=== PATIENT | male | born 1970 | race Caucasian/White ===

== ENCOUNTER 2022-02-03 22:45 | Inpatient (IN) | payer OTHER ==
[~2022-02-03] VITALS: Ht 165.1 cm; Wt 101.0 kg
[2022-02-03 23:20] LABS: BASO # 0.1 x10^3/uL (0.0-0.2); BASO % 1 % (0-3); EOS % 0 % (0-3); HEMATOCRIT 47.9 % (39.0-53.0); HEMOGLOBIN 16.8 g/dL (13.0-17.5); LYMPH # 0.5 x10^3/uL (1.0-4.8); LYMPH % 6 % (24-48); MEAN CORPUSCULAR HEMOGLOBIN 31 pg (25-35); MEAN CORPUSCULAR HGB CONC 35 g/dL (31-37); MEAN CORPUSCULAR VOLUME 88 fL (79-100); MONO # 0.2 x10^3/uL (0.0-1.1); MONO % 2 % (0-9); NEUT # 7.4 x10^3/uL (1.8-7.7); NEUT % 91 % (31-73); PLATELET COUNT 141 x10^3/uL (140-400); RED BLOOD COUNT 5.43 x10^6/uL (4.30-5.70); RED CELL DISTRIBUTION WIDTH 12.8 % (11.5-14.5); WHITE BLOOD COUNT 8.1 x10^3/uL (4.0-11.0)
[2022-02-03] MEDS ORDERED: IV NORMAL SALINE 1000ML BAG 1,000 ML IV ONE (23:30)
[2022-02-03] MEDS ORDERED: ONDANSETRON PF 4 MG/2 ML VIAL. IVP ONE (23:30)
[2022-02-03] MEDS ORDERED: ACETAMINOPHEN 500 MG TABLET PO ONE (23:30)
[2022-02-03] MEDS ORDERED: MORPHINE SULFATE 4 MG/ML INJ. IVP ONE (23:30)
[2022-02-03 23:33] LABS: CREATININE 1.3 mg/dL (0.7-1.3); GFR 58.2; POTASSIUM 3.6 mmol/L (3.5-5.1)
[2022-02-03 23:39] LABS: ALBUMIN 3.9 g/dL (3.4-5.0); ALBUMIN/GLOBULIN RATIO 1.1 (1.0-1.7); TOTAL BILIRUBIN 1.8 mg/dL (0.2-1.0); TOTAL PROTEIN 7.3 g/dL (6.4-8.2)
--- NOTE | 2022-02-03 23:44 | RAD ---
PQRS Compliance Statement: One or more of the following individualized dose reduction techniques were utilized for this examinat ion: 1. Automated exposure control 2. Adjustment of the mA and/or kV according to patient size 3. Use of iterative reconstruction technique CT abdomen/pelvis without contrast 02/03/2022 11:14 PM INDICATION: Right lower quadrant pain, fever COMPARISON: None available TECHNIQUE: Multiple axial CT images of the abdomen and pelvis were obtained without intravenous contr ast. Coronal and sagittal reformats are provided. FINDINGS: Mediastinal and right hilar calcified lymph nodes suggest sequela prior granulomatous exposure. Three -vessel coronary artery vascular calcifications are present. Lung bases are clear. Heart size within normal limits. Evaluation of the solid abdominal viscera is limited by lack of intravenous contrast. Calcifications within the spleen suggest sequela prior granulomatous exposure. Liver, adrenal glands, pancreas and gallbladder are normal in appearance. The abdominal aorta is normal in course and caliber. There are no pathologically enlarged lymph nodes in the abdomen and pelvis. There is no abdominal free fluid. There is no free intraperitoneal air. The kidneys are relatively symmetric in appearance. There is no suspicious renal mass within the limi tations of a noncontrast examination. There is no hydronephrosis. There are no calculi within the kid neys, ureters or urinary bladder. Small and large bowel are normal in caliber. There is no evidence for bowel obstruction. There are no pericolonic inflammatory changes. Dilated appendix measuring up to 1.4 cm. There is an 8 mm appendic olith at the base of the appendix. Mild reactive inflammatory changes of the base of the cecum with m oderate to advanced periappendiceal inflammatory changes. No abscess or perforation identified. Urinary bladder is within normal limits given degree of distention. Prostate and seminal vesicles are normal in appearance. No suspicious osseous abnormality is identified. Bilateral L5 pars defects favian ntified. Grade 1 anterolisthesis of L5 on S1. Grade 1 retrolisthesis of L4 on L5. IMPRESSION: Findings are compatible with acute appendicitis with an 8 mm appendicolith at the base of the appendi x. No associated abscess or perforation. FOR INTERNAL CODING PURPOSES Critical result: Findings discussed with NAJMA CARRASQUILLO APRN at 02/03/2022 11:42 PM. RESULT CODE: (C) Electronically signed by: Ofelia Cadet MD (02/03/2022 11:42 PM) [facility]
[2022-02-04] MEDS ORDERED: PIPERACILLIN/TAZOBACTAM 3.375 GM in IV NORMAL SALINE 50ML 50 ML IV ONE (00:30)
--- NOTE | 2022-02-04 00:37 | PHYS DOC ---
Past Medical History Past Surgical History: Other Additional Past Surgical Histo: HERNIA Smoking Status: Current Every Day Smoker Alcohol Use: Occasionally General Adult EDM: Chief Complaint: NAUSEA/VOMITING/DIARRHEA HPI: HPI: Patient is a 52 year old male with a history of hypertension, high cholesterol, presenting to the ED today complaining of 8 out of 10 right lower quadrant with nausea and vomiting, symptoms began this afternoon. Patient describes the pain as sharp and constant. Denies anything relieving the pain but states pushing on his right lower quadrant hurts. Review of Systems: Review of Systems: Constitutional: Denies fever or chills. [] Eyes: Denies change in visual acuity. [] HENT: Denies nasal congestion or sore throat. [] Respiratory: Denies cough or shortness of breath. [] Cardiovascular: Denies chest pain or edema. [] GI: Reports right lower quadrant abdominal pain with nausea and vomiting. Denies bloody stools or diarrhea. [] : Denies dysuria. [] Musculoskeletal: Denies back pain or joint pain. [] Integument: Denies rash. [] Neurologic: Denies headache, focal weakness or sensory changes. [] Psychiatric: Denies depression or anxiety. [] Heart Score: C/O Chest Pain: N/A Risk Factors: Risk Factors: DM, Current or recent (<one month) smoker, HTN, HLP, family history of CAD, obesity. Risk Scores: Score 0 - 3: 2.5% MACE over next 6 weeks - Discharge Home Score 4 - 6: 20.3% MACE over next 6 weeks - Admit for Clinical Observation Score 7 - 10: 72.7% MACE over next 6 weeks - Early Invasive Strategies Current Medications: Current Medications Medications (Trade) Dose Ordered Sig/[facility] Start Time Stop Time Status Last Admin Dose Admin Acetaminophen (Tylenol) 1,000 mg 1X ONCE 02/03/22 23:30 02/03/22 23:31 DC 02/03/22 23:31 1,000 MG Metronidazole 100 ml @ 100 mls/hr 1X ONCE 02/04/22 00:30 02/04/22 01:29 02/04/22 00:02 100 MLS/HR Morphine Sulfate (Morphine Sulfate) 4 mg 1X ONCE 02/03/22 23:30 02/03/22 23:31 DC 02/03/22 23:31 4 MG Ondansetron HCl (Zofran) 4 mg 1X ONCE 02/03/22 23:30 02/03/22 23:31 DC 02/03/22 23:31 4 MG Piperacillin Sod/ Tazobactam Sod 3.375 gm/Sodium Chloride 50 ml @ 100 mls/hr 1X ONCE 02/04/22 00:30 02/04/22 00:59 02/04/22 00:02 100 MLS/HR Sodium Chloride 1,000 ml @ 1,000 mls/hr 1X ONCE 02/03/22 23:30 02/04/22 00:29 DC 02/03/22 23:31 1,000 MLS/HR Allergies: Allergies: Allergies Coded Allergies Type Severity Reaction Last Updated Verified No Known Drug Allergies 02/03/22 No Physical Exam: PE: Constitutional: Well developed, well nourished, no acute distress, non-toxic appearance. [] HENT: Normocephalic, atraumatic, bilateral external ears normal, oropharynx moist, no oral exudates, nose normal. [] Eyes: PERRLA, EOMI, conjunctiva normal, no discharge. [] Neck: Normal range of motion, no tenderness, supple, no stridor. [] Cardiovascular:Heart rate regular rhythm, no murmur [] Lungs & Thorax: Bilateral breath sounds clear to auscultation [] Abdomen: Bowel sounds normal, soft, patient is guarding the right lower quadrant, moderate tenderness on palpation of the right lower quadrant, positive psoas sign no masses, no pulsatile masses. [] Skin: Warm, dry, no erythema, no rash. [] Back: No tenderness, no CVA tenderness. [] Extremities: No tenderness, no cyanosis, no clubbing, ROM intact, no edema. [] Neurologic: Alert and oriented X 3, normal motor function, normal sensory function, no focal deficits noted. [] Psychologic: Affect normal, judgement normal, mood normal. [] Current Patient Data: Labs: Laboratory Tests Test 02/03/22 23:10 White Blood Count 8.1 x10^3/uL (4.0-11.0) Red Blood Count 5.43 x10^6/uL (4.30-5.70) Hemoglobin 16.8 g/dL (13.0-17.5) Hematocrit 47.9 % (39.0-53.0) Mean Corpuscular Volume 88 fL (79-100) Mean Corpuscular Hemoglobin 31 pg (25-35) Mean Corpuscular Hemoglobin Concent 35 g/dL (31-37) Red Cell Distribution Width 12.8 % (11.5-14.5) Platelet Count 141 x10^3/uL (140-400) Neutrophils (%) (Auto) 91 % (31-73) H Lymphocytes (%) (Auto) 6 % (24-48) L Monocytes (%) (Auto) 2 % (0-9) Eosinophils (%) (Auto) 0 % (0-3) Basophils (%) (Auto) 1 % (0-3) Neutrophils # (Auto) 7.4 x10^3/uL (1.8-7.7) Lymphocytes # (Auto) 0.5 x10^3/uL (1.0-4.8) L Monocytes # (Auto) 0.2 x10^3/uL (0.0-1.1) Eosinophils # (Auto) 0.0 x10^3/uL (0.0-0.7) Basophils # (Auto) 0.1 x10^3/uL (0.0-0.2) Sodium Level 137 mmol/L (136-145) Potassium Level 3.6 mmol/L (3.5-5.1) Chloride Level 100 mmol/L (98-107) Carbon Dioxide Level 26 mmol/L (21-32) Anion Gap 11 (6-14) Blood Urea Nitrogen 8 mg/dL (8-26) Creatinine 1.3 mg/dL (0.7-1.3) Estimated GFR (Cockcroft-Gault) 58.2 BUN/Creatinine Ratio 6 (6-20) Glucose Level 130 mg/dL (70-99) H Calcium Level 9.0 mg/dL (8.5-10.1) Total Bilirubin 1.8 mg/dL (0.2-1.0) H Aspartate Amino Transferase (AST) 17 U/L (15-37) Alanine Aminotransferase (ALT) 26 U/L (16-63) Alkaline Phosphatase 82 U/L (46-116) Total Protein 7.3 g/dL (6.4-8.2) Albumin 3.9 g/dL (3.4-5.0) Albumin/Globulin Ratio 1.1 (1.0-1.7) Lipase 91 U/L (73-393) Laboratory Tests 02/03/22 23:10 Laboratory Tests 02/03/22 23:10 Vital Signs: Vital Signs Date Time Temp Pulse Resp B/P (MAP) Pulse Ox O2 Delivery O2 Flow Rate FiO2 02/03/22 23:31 Room Air 02/03/22 22:45 102.9 103 18 164/91 (115) 93 102.9 EKG: EKG: [] Radiology/Procedures: Radiology/Procedures: []PROCEDURE: CT ABDOMEN PELVIS WO CONTRAST PQRS Compliance Statement: One or more of the following individualized dose reduction techniques were utilized for this examination: 1. Automated exposure control 2. Adjustment of the mA and/or kV according to patient size 3. Use of iterative reconstruction technique CT abdomen/pelvis without contrast 02/03/2022 11:14 PM INDICATION: Right lower quadrant pain, fever COMPARISON: None available TECHNIQUE: Multiple axial CT images of the abdomen and pelvis were obtained without intravenous contrast. Coronal and sagittal reformats are provided. FINDINGS: Mediastinal and right hilar calcified lymph nodes suggest sequela prior granulomatous exposure. Three-vessel coronary artery vascular calcifications are present. Lung bases are clear. Heart size within normal limits. Evaluation of the solid abdominal viscera is limited by lack of intravenous contrast. C alcifications within the spleen suggest sequela prior granulomatous exposure. Liver, adrenal glands, pancreas and gallbladder are normal in appearance. The abdominal aorta is normal in course and caliber. There are no pathologically enlarged lymph nodes in the abdomen and pelvis. There is no abdominal free fluid. There is no free intraperitoneal air. The kidneys are relatively symmetric in appearance. There is no suspicious renal mass within the limitations of a noncontrast examination. There is no hydronephrosis. There are no calculi within the kidneys, ureters or urinary bladder. Small and large bowel are normal in caliber. There is no evidence for bowel obstruction. There are no pericolonic inflammatory changes. Dilated appendix measuring up to 1.4 cm. There is an 8 mm appendicolith at the base of the appendix. Mild reactive inflammatory changes of the base of the cecum with moderate to advanced periappendiceal inflammatory changes. No abscess or perforation identified. Urinary bladder is within normal limits given degree of distention. Prostate and seminal vesicles are normal in appearance. No suspicious osseous abnormality is identified. Bilateral L5 pars defects identified. Grade 1 anterolisthesis of L5 on S1. Grade 1 retrolisthesis of L4 on L5. IMPRESSION: Findings are compatible with acute appendicitis with an 8 mm appendicolith at the base of the appendix. No associated abscess or perforation. FOR INTERNAL CODING PURPOSES Critical result: Findings discussed with NAJMA CARRASQUILLO APRN at 02/03/2022 11:42 PM. RESULT CODE: (C) Electronically signed by: Rashawn Tejeda MD (02/03/2022 11:42 PM) [facility] DICTATED and SIGNED BY: RASHAWN TEJEDA MD DATE: 02/03/224 Course & Med Decision Making: Course & Med Decision Making Pertinent Labs and Imaging studies reviewed. (See chart for details) This a 52-year-old male patient presenting to the ED today complaining of right lower quadrant abdominal pain with nausea vomiting that began today. Vitals on arrival to the ED temperature 102.9, heart rate 103, respiration 18, blood pressure 164/91, O2 sats 93% on room air. CBC CMP with no acute findings. CT of the abdomen and pelvis is noted for acute appendicitis with an 8 mm appendicolith at the base of the appendix. No associated abscess or perforation. Spoke with Dr. Girard general surgery Admitted under Dr. Keo Maya Disclaimer: Francesco Disclaimer: This electronic medical record was generated, in whole or in part, using a voice recognition dictation system. Departure Departure Impression: Primary Impression: Acute appendicitis Qualified Codes: K35.80 - Unspecified acute appendicitis Additional Impression: Fever Qualified Codes: R50.9 - Fever, unspecified Disposition: ADMITTED INPATIENT Condition: STABLE PILYRAFINAJMA Tenorio APRN February 04, 2022 00:37
[2022-02-04] MEDS ORDERED: ONDANSETRON PF 4 MG/2 ML VIAL. IVP PRN (00:45)
[2022-02-04] MEDS ORDERED: IV NORMAL SALINE 1000ML BAG 1,000 ML IV ONE (01:00)
[2022-02-04 01:28] VITALS: BP 114/65
[2022-02-04] MEDS: MORPHINE SULFATE 4 MG/ML INJ. IVP PRN ×3 (02:54→10:15)
--- NOTE | 2022-02-04 05:38 | NUR ---
Patient is unsure of medications. States he believes his blood pressure medication starts with an "L" and is 40mg and his cholesterol medication starts with an "a" and is 10mg. RN asked patient if he had anyone at home who could check bottles to verify or if he had the [employer] milvia to verify since he uses [facility] but patient stated he didn't. RN informed patient that he should call pharmacy or his doctor in the AM when they open to verify correct medication name and dose before we enter into the computer.
[2022-02-04] MEDS ORDERED: fentaNYL PF VIAL 100 MCG/2 ML VIAL IVP PRN (06:30)
[2022-02-04] MEDS ORDERED: PROCHLORPERAZINE 10 MG/2 ML VIAL. IVP PRN (06:30)
[2022-02-04] MEDS ORDERED: MORPHINE SULFATE 2 MG/ML INJ. IVP PRN (06:30)
[2022-02-04] MEDS ORDERED: HYDROmorphone 2 MG/ML INJ. IVP PRN (06:30)
[2022-02-04 07:00] VITALS: BP 147/90
[2022-02-04] MEDS ORDERED: IV RINGERS,LACTATED 1000ML 1,000 ML IV SCH (07:00)
--- NOTE | 2022-02-04 08:21 | PDOC2 ---
CONSULT Date of Consult Date of Consult DATE: 02/04/22 TIME: 08:17 Reason for Consult Reason for Consult: acute appendicitis Referring Physician Referring Physician: ER Identification/Chief Complaint Chief Complaint abdominal pain Source Source: Chart review, Patient History of Present Illness Reason for Visit: RLQ pain with associated nausea and vomiting that started Tues evening. Reports at first thought food poisoning. Pain is aggravated with movement. No constipation or diarrhea. Past Medical History Cardiovascular: HTN, Hyperlipidemia Past Surgical History Past Surgical History: Hernia Repair Family History Family History: Other (noncontributory to current illness ) Social History <1 pack per day ALCOHOL: occassional Drugs: None Lives: Alone Current Problem List Problem List Problems Medical Problems: (1) Acute appendicitis Status: Acute (2) Fever Status: Acute Current Medications Current Medications Current Medications Sodium Chloride 1,000 ml @ 1,000 mls/hr 1X ONCE IV Last administered on 02/03/22at 23:31; Start 02/03/22 at 23:30; Stop 02/04/22 at 00:29; Status DC Ondansetron HCl (Zofran) 4 mg 1X ONCE IVP Last administered on 02/03/22at 23:31; Start 02/03/22 at 23:30; Stop 02/03/22 at 23:31; Status DC Morphine Sulfate (Morphine Sulfate) 4 mg 1X ONCE IVP Last administered on 02/03at 23:31; Start 02/03/22 at 23:30; Stop 02/03/22 at 23:31; Status DC Acetaminophen (Tylenol) 1,000 mg 1X ONCE PO Last administered on 02/03/22at 23:31; Start 02/03/22 at 23:30; Stop 02/03/22 at 23:31; Status DC Piperacillin Sod/ Tazobactam Sod 3.375 gm/Sodium Chloride 50 ml @ 100 mls/hr 1X ONCE IV Last administered on 02/04/22at 00:02; Start 02/04/22 at 00:30; Stop 02/04/22 at 00:59; Status DC Metronidazole 100 ml @ 100 mls/hr 1X ONCE IV Last administered on 02/04/22at 00:02; Start 02/04/22 at 00:30; Stop 02/04/22 at 01:29; Status DC Ondansetron HCl (Zofran) 4 mg PRN Q8HRS PRN IVP NAUSEA/VOMITING 1ST CHOICE; Start 02/04/22 at 00:45; Stop 02/05/22 at 00:44 Morphine Sulfate (Morphine Sulfate) 4 mg PRN Q2HR PRN IVP SEVERE PAIN 7-10 Last administered on 02/04/22at 07:22; Start 02/04/22 at 00:45; Stop 02/05/22 at 00:44 Sodium Chloride 1,000 ml @ 100 mls/hr 1X ONCE IV Last administered on 02/04/22at 01:00; Start 02/04/22 at 01:00; Stop 02/04/22 at 10:59 Fentanyl Citrate (Fentanyl 2ml Vial) 25 mcg PRN Q5MIN PRN IVP MILD PAIN 1-3; Start 02/04/22 at 06:30; Stop 02/05/22 at 06:29 Fentanyl Citrate (Fentanyl 2ml Vial) 50 mcg PRN Q5MIN PRN IVP MODERATE PAIN 4- 6; Start 02/04/22 at 06:30; Stop 02/05/22 at 06:29 Morphine Sulfate (Morphine Sulfate) 1 mg PRN Q10MIN PRN IVP SEVERE PAIN 7-10; Start 02/04/22 at 06:30; Stop 02/05/22 at 06:29 Ringer's Solution 1,000 ml @ 30 mls/hr Q24H IV ; Start 02/04/22 at 07:00; Stop 02/04/22 at 18:00 Hydromorphone HCl (Dilaudid) 0.5 mg PRN Q10MIN PRN IVP SEVERE PAIN 7-10, 2nd CHOICE; Start 02/04/22 at 06:30; Stop 02/05/22 at 06:29 Prochlorperazine Edisylate (Compazine) 5 mg PACU PRN PRN IVP NAUSEA, MRX1; Start 02/04/22 at 06:30; Stop 02/05/22 at 06:29 Allergies Allergies: Coded Allergies: No Known Drug Allergies (Unverified , 02/03/22) ROS General: YES: Fatigue; No: Chills PSYCHOLOGICAL ROS: No: Anxiety, Depression Eyes: No Blurry vision, No Double vision HEENT: No: Heacaches, Sore Throat Hematological and Lymphatic: No: Bleeding Problems, Blood Clots Respiratory: No: Cough, Shortness of breath Cardiovascular: No Chest Pain, No Palpitations Gastrointestinal: Yes Other (see hpi) Genitourinary: No Dysuria, No Retention Musculoskeletal: No Joint Pain, No Muscle Pain Neurological: No Impaired Coord/balance, No Numbness/Tingling Skin: No Pruritus, No Rash Physical Exam General: Alert, Oriented X3, Cooperative, No acute distress HEENT: Atraumatic, PERRLA Lungs: Clear to auscultation, Normal air movement Heart: Regular rate, Normal S1, Normal S2 Abdomen: Soft, Other (RLQ TTP, midline scar noted from previous hernia repair ) Extremities: No clubbing, No cyanosis Skin: No rashes, No breakdown Neuro: Normal gait, Normal speech Psych/Mental Status: Mental status NL, Mood NL MUSCULOSKELETAL: No deformity, No swelling Vitals VITALS Vital Signs Date Time Temp Pulse Resp B/P (MAP) Pulse Ox O2 Delivery O2 Flow Rate FiO2 02/04/22 07:43 Room Air 02/04/22 01:28 102.6 87 20 114/65 (81) 97 102.6 Labs Labs Laboratory Tests Test 02/03/22 23:10 02/04/22 00:01 02/04/22 00:24 White Blood Count 8.1 x10^3/uL (4.0-11.0) Red Blood Count 5.43 x10^6/uL (4.30-5.70) Hemoglobin 16.8 g/dL (13.0-17.5) Hematocrit 47.9 % (39.0-53.0) Mean Corpuscular Volume 88 fL (79-100) Mean Corpuscular Hemoglobin 31 pg (25-35) Mean Corpuscular Hemoglobin Concent 35 g/dL (31-37) Red Cell Distribution Width 12.8 % (11.5-14.5) Platelet Count 141 x10^3/uL (140-400) Neutrophils (%) (Auto) 91 % (31-73) Lymphocytes (%) (Auto) 6 % (24-48) Monocytes (%) (Auto) 2 % (0-9) Eosinophils (%) (Auto) 0 % (0-3) Basophils (%) (Auto) 1 % (0-3) Neutrophils # (Auto) 7.4 x10^3/uL (1.8-7.7) Lymphocytes # (Auto) 0.5 x10^3/uL (1.0-4.8) Monocytes # (Auto) 0.2 x10^3/uL (0.0-1.1) Eosinophils # (Auto) 0.0 x10^3/uL (0.0-0.7) Basophils # (Auto) 0.1 x10^3/uL (0.0-0.2) Sodium Level 137 mmol/L (136-145) Potassium Level 3.6 mmol/L (3.5-5.1) Chloride Level 100 mmol/L (98-107) Carbon Dioxide Level 26 mmol/L (21-32) Anion Gap 11 (6-14) Blood Urea Nitrogen 8 mg/dL (8-26) Creatinine 1.3 mg/dL (0.7-1.3) Estimated GFR (Cockcroft-Gault) 58.2 BUN/Creatinine Ratio 6 (6-20) Glucose Level 130 mg/dL (70-99) Calcium Level 9.0 mg/dL (8.5-10.1) Total Bilirubin 1.8 mg/dL (0.2-1.0) Aspartate Amino Transf (AST/SGOT) 17 U/L (15-37) Alanine Aminotransferase (ALT/SGPT) 26 U/L (16-63) Alkaline Phosphatase 82 U/L (46-116) Total Protein 7.3 g/dL (6.4-8.2) Albumin 3.9 g/dL (3.4-5.0) Albumin/Globulin Ratio 1.1 (1.0-1.7) Lipase 91 U/L (73-393) Prothrombin Time 14.0 SEC (11.7-14.0) Prothromb Time International Ratio 1.1 (0.8-1.1) Activated Partial Thromboplast Time 29 SEC (24-38) SARS-CoV-2 Antigen (Rapid) Negative (NEGATIVE) Laboratory Tests Test 02/03/22 23:10 02/04/22 00:01 02/04/22 00:24 White Blood Count 8.1 x10^3/uL (4.0-11.0) Red Blood Count 5.43 x10^6/uL (4.30-5.70) Hemoglobin 16.8 g/dL (13.0-17.5) Hematocrit 47.9 % (39.0-53.0) Mean Corpuscular Volume 88 fL (79-100) Mean Corpuscular Hemoglobin 31 pg (25-35) Mean Corpuscular Hemoglobin Concent 35 g/dL (31-37) Red Cell Distribution Width 12.8 % (11.5-14.5) Platelet Count 141 x10^3/uL (140-400) Neutrophils (%) (Auto) 91 % (31-73) Lymphocytes (%) (Auto) 6 % (24-48) Monocytes (%) (Auto) 2 % (0-9) Eosinophils (%) (Auto) 0 % (0-3) Basophils (%) (Auto) 1 % (0-3) Neutrophils # (Auto) 7.4 x10^3/uL (1.8-7.7) Lymphocytes # (Auto) 0.5 x10^3/uL (1.0-4.8) Monocytes # (Auto) 0.2 x10^3/uL (0.0-1.1) Eosinophils # (Auto) 0.0 x10^3/uL (0.0-0.7) Basophils # (Auto) 0.1 x10^3/uL (0.0-0.2) Sodium Level 137 mmol/L (136-145) Potassium Level 3.6 mmol/L (3.5-5.1) Chloride Level 100 mmol/L (98-107) Carbon Dioxide Level 26 mmol/L (21-32) Anion Gap 11 (6-14) Blood Urea Nitrogen 8 mg/dL (8-26) Creatinine 1.3 mg/dL (0.7-1.3) Estimated GFR (Cockcroft-Gault) 58.2 BUN/Creatinine Ratio 6 (6-20) Glucose Level 130 mg/dL (70-99) Calcium Level 9.0 mg/dL (8.5-10.1) Total Bilirubin 1.8 mg/dL (0.2-1.0) Aspartate Amino Transf (AST/SGOT) 17 U/L (15-37) Alanine Aminotransferase (ALT/SGPT) 26 U/L (16-63) Alkaline Phosphatase 82 U/L (46-116) Total Protein 7.3 g/dL (6.4-8.2) Albumin 3.9 g/dL (3.4-5.0) Albumin/Globulin Ratio 1.1 (1.0-1.7) Lipase 91 U/L (73-393) Prothrombin Time 14.0 SEC (11.7-14.0) Prothromb Time International Ratio 1.1 (0.8-1.1) Activated Partial Thromboplast Time 29 SEC (24-38) SARS-CoV-2 Antigen (Rapid) Negative (NEGATIVE) Assessment/Plan Assessment/Plan acute appendicitis plan lap BETHANY Lamar [employer] February 04, 2022 08:21
[2022-02-04] MEDS ORDERED: PIP/TAZO PER PHARMACY MC PRN (10:15)
--- NOTE | 2022-02-04 10:32 | HP ---
DATE OF SERVICE: 02/04/2022 ADMIT DATE: 02/04/2022 CHIEF COMPLAINT: Nausea, vomiting, diarrhea, abdominal pain. HISTORY OF PRESENT ILLNESS: The patient is a pleasant, relatively healthy 52-year-old male who presented to the ER last night with abdominal pain, nausea, vomiting, diarrhea. We did some imaging. He has appendicitis. I discussed the case with ER physician. We admitted him. He is going to surgery today with Dr. Girard at 12:30. PAST MEDICAL HISTORY: Tobacco abuse, hernia repair. ALLERGIES: None. FAMILY HISTORY: Diabetes. SOCIAL HISTORY: He drinks socially. He does smoke. No drugs. 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 MEDICATIONS: Reviewed. Please refer to the MRAD. REVIEW OF SYSTEMS: GENERAL: No history of weight change, weakness or fevers. SKIN: No bruising, hair changes or rashes. EYES: No blurred, double or loss of vision. NOSE AND THROAT: No history of nosebleeds, hoarseness or sore throat. HEART: No history of palpitations, chest pain or shortness of breath on exertion. LUNGS: Denies cough, hemoptysis, wheezing or shortness of breath. GASTROINTESTINAL: He complains of nausea, vomiting, diarrhea, abdominal pain. GENITOURINARY: No history of frequency, urgency, hesitancy or nocturia. NEUROLOGIC: Denies history of numbness, tingling, tremor or weakness. PSYCHIATRIC: No history of panic, anxiety or depression. ENDOCRINE: No history of heat or cold intolerance, polyuria or polydipsia. EXTREMITIES: Denies muscle weakness, joint pain, pain on walking or stiffness. PHYSICAL EXAMINATION: VITALS: Within normal limits and are stable. GENERAL: No apparent distress. Alert and oriented. HEENT: Normal cephalic atraumatic, external auditory canals are patent. EYES: Extraocular muscles are intact, pupils are equally round and reactive to light and accommodation. MUSCULOSKELETAL: Well developed, well nourished, good range of motion. ENDOCRINE: No thyromegaly was palpated. LYMPHATICS: No cervical chain or axillary nodes were noted. HEMATOPOIETIC: No bruising. NECK: Supple, no JVD, no thyromegaly was noted. LUNGS: Clear to auscultation in all lung peñaloza without rhonchi or wheezing. HEART: RRR, S1, S2 present. Peripheral pulses intact, no obvious murmurs were noted. ABDOMEN: He has got decreased bowel sound. He is tender to palpation. EXTREMITIES: Without any cyanosis, clubbing, or edema. Pedal pulses intact, Homans sign is negative. NEUROLOGIC: Normal speech, normal tone. A and O x 3, moves all extremities, no obvious focal deficits. PSYCHIATRIC: Normal affect, normal mood. Stable. SKIN: No ulcerations or rashes, good skin turgor, no jaundice. VASCULAR: Good capillary refill, neurovascular bundle appears to be intact. LABORATORY DATA: White count 8, hemoglobin 16.8, platelets 141. Electrolytes are normal. INR is 1.1. COVID testing is negative. CT of the abdomen shows appendicitis. ASSESSMENT AND PLAN: Appendicitis. The patient has been admitted. We are giving him IV Zosyn, p.r.n. pain meds. We consulted General Surgery. He is going to surgery today at 12:30. Postoperatively, he will need wound care and hope to get his home meds going again and then he will hopefully go home tomorrow if he is doing better. THUY DR: Donny TID: [id number]
[2022-02-04 11:00] VITALS: BP 143/84
[2022-02-04] MEDS ORDERED: ROCURONIUM 50 MG/5 ML VIAL. ONE ×2 (11:10→13:45)
[2022-02-04] MEDS ORDERED: fentaNYL PF VIAL 100 MCG/2 ML VIAL ONE ×2 (11:11→11:29)
--- NOTE | 2022-02-04 11:17 | NUR ---
Pt's temp 103.1, TRIPP Seo in PACU notified. Pt. to be going for surgery soon.
--- NOTE | 2022-02-04 11:21 | NUR ---
Dr. Hand notified of pt's temp of 103.1, no new orders at this time. Transportation here to take pt to surgery.
[2022-02-04] MEDS: fentaNYL PF VIAL 100 MCG/2 ML VIAL IVP PRN ×2 (11:40→11:45)
[2022-02-04] MEDS: PIPERACILLIN/TAZOBACTAM 3.375 GM in IV NORMAL SALINE 50ML 50 ML IV SCH ×2 (11:41→17:18)
[2022-02-04] MEDS ORDERED: BUPIVACAINE-EPI 0.5% 30 ML VIAL KIT. ONE (12:03)
[2022-02-04] MEDS ORDERED: HYDROmorphone 2 MG/ML INJ. ONE (13:07)
[2022-02-04] MEDS ORDERED: SUCCINYLCHOLINE 200 MG/10 ML VIAL. ONE (13:09)
[2022-02-04] MEDS ORDERED: PHENYLEPHRINE in 0.9% NACL PF 1 MG/10 ML SYRINGE. IV ONE (13:23)
[2022-02-04] MEDS ORDERED: SUGAMMADEX SODIUM 200 MG/2 ML VIAL. IVP ONE (13:30)
[2022-02-04] MEDS ORDERED: ONDANSETRON PF 4 MG/2 ML VIAL. ONE (14:18)
[2022-02-04] MEDS ORDERED: DEXAMETHASONE SOD PHOS 4 MG/ML VIAL ONE (14:19)
--- NOTE | 2022-02-04 14:26 | PDOC4 ---
Operative Note Operative Note Preoperative Diagnosis: Acute Appendicitis Postoperative Diagnosis: Same Procedure: Laparoscopic appendectomy Surgeon: Shaji Anesthesia: Gen. EBL: 10 mL Specimen: Appendix to pathology Drains: None Complications: None Indication: The patient is a 52-year-old male who reported to the emergency department with abdominal pain. The evaluation is consistent with acute appendicitis. The patient was offered surgical treatment with a laparoscopic appendectomy. The risks of surgery were discussed which include bleeding, infection, visceral injury, pain, anesthetic risk, potential need for additional surgery or procedure. The patient understands and would like to proceed. Description: The patient was taken to the operating room and placed supine on the operating table. Gen. anesthesia was performed. The abdomen was prepped with ChloraPrep and draped in a standard surgical manner. An incision was made in the left abdomen through which a visualized 5 mm trocar was inserted. Pneumoperitoneum was created and the laparoscope was introduced. In the left lower quadrant a 5 mm trocar was inserted. In the suprapubic region a 12 mm trocar was inserted. The appendix was identified and appeared inflamed consistent with acute appendicitis. There was some surrounding inflammatory change and exudate of the peritoneum and bowel loops. The overall appearance raise the question of a focal perforation. The mesoappendix was bluntly from the appendix. The mesoappendix was very thick and was controlled and divided using a vascular load on the Endo MILTON 45 stapling device. The appendix was then amputated off the cecum using an Endo MILTON 45 stapling device. The appendix was then placed in an endoscopic bag and extracted at the suprapubic incision site. The fascia there was closed with 0 Vicryl and infiltrated with half percent Marcaine with epinephrine. The RLQ was visualized and the staple line appeared well intact and hemostasis was good. No other abnormalities were identified grossly. The remaining ports were removed and the pneumoperitoneum was relieved. The skin at all incision sites was closed with 4- 0 Monocryl. Steri-Strips and dressings were applied. The patient tolerated the procedure well and was sent to the recovery room in stable condition. At the end of the case all counts were correct. TRELL MALDONADO MD February 04, 2022 14:25
[2022-02-04] MEDS ORDERED: oxyCODONE/APAP 5/325 1 TAB TABLET PO PRN (14:30)
[2022-02-04 19:30] VITALS: BP 114/68
[2022-02-04 23:44] VITALS: BP 128/75
[2022-02-05] MEDS: PIPERACILLIN/TAZOBACTAM 3.375 GM in IV NORMAL SALINE 50ML 50 ML IV SCH ×5 (00:04→23:49)
[2022-02-05 03:27] VITALS: BP 129/90
[2022-02-05 07:30] VITALS: BP 149/105
--- NOTE | 2022-02-05 09:03 | PDOC ---
SURGICAL PROGRESS NOTE DATE: 02/05/22 TIME: 09:01 Subjective Patient states has not eaten much still feels a little puny Vital Signs Vital Signs Date Time Temp Pulse Resp B/P (MAP) Pulse Ox O2 Delivery O2 Flow Rate FiO2 02/05/22 07:30 98.1 75 16 149/105 (120) 97 Nasal Cannula 2.0 98.1 I&O Intake and Output 02/05/22 07:00 Intake Total 2030 ml Output Total 260 ml Balance 1770 ml Intake Oral 480 ml IV Total 1550 ml Output Urine Total 250 ml Estimated Blood Loss 10 ml # Voids 4 PATIENT HAS A ARRIOLA: No General: Alert, Oriented X3, Cooperative, mild distress Abdomen: Soft, Other (Mild incisional tenderness wounds clean dry and intact mildly distended hypoactive bowel sound) Labs Laboratory Tests Test 02/03/22 23:10 02/04/22 00:01 02/04/22 00:24 02/04/22 01:00 White Blood Count 8.1 x10^3/uL (4.0-11.0) Red Blood Count 5.43 x10^6/uL (4.30-5.70) Hemoglobin 16.8 g/dL (13.0-17.5) Hematocrit 47.9 % (39.0-53.0) Mean Corpuscular Volume 88 fL (79-100) Mean Corpuscular Hemoglobin 31 pg (25-35) Mean Corpuscular Hemoglobin Concent 35 g/dL (31-37) Red Cell Distribution Width 12.8 % (11.5-14.5) Platelet Count 141 x10^3/uL (140-400) Neutrophils (%) (Auto) 91 % (31-73) Lymphocytes (%) (Auto) 6 % (24-48) Monocytes (%) (Auto) 2 % (0-9) Eosinophils (%) (Auto) 0 % (0-3) Basophils (%) (Auto) 1 % (0-3) Neutrophils # (Auto) 7.4 x10^3/uL (1.8-7.7) Lymphocytes # (Auto) 0.5 x10^3/uL (1.0-4.8) Monocytes # (Auto) 0.2 x10^3/uL (0.0-1.1) Eosinophils # (Auto) 0.0 x10^3/uL (0.0-0.7) Basophils # (Auto) 0.1 x10^3/uL (0.0-0.2) Sodium Level 137 mmol/L (136-145) Potassium Level 3.6 mmol/L (3.5-5.1) Chloride Level 100 mmol/L (98-107) Carbon Dioxide Level 26 mmol/L (21-32) Anion Gap 11 (6-14) Blood Urea Nitrogen 8 mg/dL (8-26) Creatinine 1.3 mg/dL (0.7-1.3) Estimated GFR (Cockcroft-Gault) 58.2 BUN/Creatinine Ratio 6 (6-20) Glucose Level 130 mg/dL (70-99) Calcium Level 9.0 mg/dL (8.5-10.1) Total Bilirubin 1.8 mg/dL (0.2-1.0) Aspartate Amino Transf (AST/SGOT) 17 U/L (15-37) Alanine Aminotransferase (ALT/SGPT) 26 U/L (16-63) Alkaline Phosphatase 82 U/L (46-116) Total Protein 7.3 g/dL (6.4-8.2) Albumin 3.9 g/dL (3.4-5.0) Albumin/Globulin Ratio 1.1 (1.0-1.7) Lipase 91 U/L (73-393) Prothrombin Time 14.0 SEC (11.7-14.0) Prothromb Time International Ratio 1.1 (0.8-1.1) Activated Partial Thromboplast Time 29 SEC (24-38) SARS-CoV-2 Antigen (Rapid) Negative (NEGATIVE) Coronavirus (COVID-19)(PCR) Not detected (NOT DETECTD) Problem List Problems Medical Problems: (1) Acute appendicitis Status: Acute (2) Fever Status: Acute Assessment/Plan Status post laparoscopic appendectomy low-grade fevers awaiting return of bowel function continue IV antibiotics for another 24 hours Justicifation of Admission Dx: Justifications for Admission: Justification of Admission Dx: N/A CHELSEY ERICKSON MD February 05, 2022 09:03
[2022-02-05] MEDS: oxyCODONE/APAP 5/325 1 TAB TABLET PO PRN ×3 (10:11→21:12)
[2022-02-05] MEDS: ONDANSETRON PF 4 MG/2 ML VIAL. IVP PRN ×3 (10:11→23:50)
--- NOTE | 2022-02-05 10:32 | PDOC ---
[facility] PROGRESS NOTE Date of Service DOS: DATE: 02/05/22 TIME: 10:30 Chief Complaint Chief Complaint Postop day 1 laparoscopic appendectomy Tobacco abuse, hernia repair. History of Present Illness History of Present Illness 02/05/2022 Patient seen and examined Discussed with RN Chart reviewed Discussed with case management Vitals/I&O Vitals/I&O: Vital Signs Date Time Temp Pulse Resp B/P (MAP) Pulse Ox O2 Delivery O2 Flow Rate FiO2 02/05/22 10:11 Room Air 02/05/22 07:30 98.1 75 16 149/105 (120) 97 2.0 98.1 I & O 02/04/22 02/04/22 02/05/22 15:00 23:00 07:00 Intake Total 1550 ml 480 ml Output Total 260 ml Balance 1290 ml 480 ml Physical Exam General: Alert, Oriented X3, Cooperative, mild distress, Other (Complaining of some nausea) Heart: Regular rate, Normal S1, Normal S2 Abdomen: Soft, Other (Mild incisional tenderness wounds clean dry and intact mildly distended hypoactive bowel sound) Extremities: No clubbing, No cyanosis Skin: No rashes, No breakdown Assessment and Plan Assessmemt and Plan Problems Medical Problems: (1) Acute appendicitis Status: Acute (2) Fever Status: Acute Postop day 1 laparoscopic appendectomy Tobacco abuse, hernia repair. Plan IV antibiotics As needed Zofran As needed morphine Hope to advance diet Wound care DVT prophylaxis Full code Home meds Appreciate surgical intervention Comment Review of Relevant I have reviewed the following items theodora (where applicable) has been applied. Medications: Current Medications Medications (Trade) Dose Ordered Sig/Yuni Route PRN Reason Start Time Stop Time Status Last Admin Dose Admin Piperacillin Sod/ Tazobactam Sod 3.375 gm/Sodium Chloride 50 ml @ 100 mls/hr Q6HRS IV 02/04/22 12:00 02/05/22 05:55 Bupivacaine HCl/ Epinephrine Bitart (Sensorcain-Epi 0.5% Kit) 30 ml STK-MED ONCE .ROUTE 02/04/22 12:03 02/04/22 12:19 DC 02/04/22 13:49 Oxycodone/ Acetaminophen (Percocet 5/325) 1 tab PRN Q4HRS PRN PO PAIN 02/04/22 14:30 02/05/22 10:11 Ondansetron HCl (Zofran) 4 mg PRN Q6HRS PRN IVP NAUSEA/VOMITING 02/05/22 09:45 02/05/22 10:11 Justifications for Admission Other Justification MARK THOMPSON III DO February 05, 2022 10:32
[2022-02-05 11:33] VITALS: BP 149/95
[2022-02-05 15:00] VITALS: BP 129/96
[2022-02-05 19:00] VITALS: BP 128/91
[2022-02-05] MEDS: LACTOBACILLUS RHAMNOSUS GG 1 CAPSULE. PO SCH (21:11)
[2022-02-05 23:00] VITALS: BP 123/83
[2022-02-06 03:00] VITALS: BP 121/88
[2022-02-06] MEDS: PIPERACILLIN/TAZOBACTAM 3.375 GM in IV NORMAL SALINE 50ML 50 ML IV SCH ×2 (06:20→12:00)
[2022-02-06] MEDS: ONDANSETRON PF 4 MG/2 ML VIAL. IVP PRN (06:23)
[2022-02-06] MEDS: oxyCODONE/APAP 5/325 1 TAB TABLET PO PRN (06:26)
[2022-02-06 07:00] VITALS: BP 103/54
[2022-02-06 07:03] LABS: BASO % 0 % (0-3); EOS # 0.2 x10^3/uL (0.0-0.7); EOS % 3 % (0-3); HEMATOCRIT 39.2 % (39.0-53.0); HEMOGLOBIN 13.4 g/dL (13.0-17.5); LYMPH # 0.5 x10^3/uL (1.0-4.8); LYMPH % 8 % (24-48); MEAN CORPUSCULAR HEMOGLOBIN 31 pg (25-35); MEAN CORPUSCULAR HGB CONC 34 g/dL (31-37); MEAN CORPUSCULAR VOLUME 89 fL (79-100); MONO # 0.6 x10^3/uL (0.0-1.1); MONO % 8 % (0-9); NEUT # 5.6 x10^3/uL (1.8-7.7); NEUT % 81 % (31-73); PLATELET COUNT 101 x10^3/uL (140-400); RED BLOOD COUNT 4.39 x10^6/uL (4.30-5.70); WHITE BLOOD COUNT 6.9 x10^3/uL (4.0-11.0)
--- NOTE | 2022-02-06 09:27 | PDOC ---
SURGICAL PROGRESS NOTE DATE: 02/06/22 TIME: 09:26 Subjective Patient states he is feeling much better today tolerating diet Vital Signs Vital Signs Date Time Temp Pulse Resp B/P (MAP) Pulse Ox O2 Delivery O2 Flow Rate FiO2 02/06/22 07:00 97.6 57 18 103/54 (70) 99 Room Air 97.6 02/05/22 11:33 2.0 I&O Intake and Output 02/06/22 07:00 Intake Total 500 ml Balance 500 ml Intake Oral 500 ml # Voids 3 PATIENT HAS A ARRIOLA: No General: Alert, Oriented X3, Cooperative, mild distress Abdomen: Normal bowel sounds, Soft, Other (Mild incisional tenderness wounds clean dry and intact) Labs Laboratory Tests Test 02/06/22 06:00 White Blood Count 6.9 x10^3/uL (4.0-11.0) Red Blood Count 4.39 x10^6/uL (4.30-5.70) Hemoglobin 13.4 g/dL (13.0-17.5) Hematocrit 39.2 % (39.0-53.0) Mean Corpuscular Volume 89 fL (79-100) Mean Corpuscular Hemoglobin 31 pg (25-35) Mean Corpuscular Hemoglobin Concent 34 g/dL (31-37) Red Cell Distribution Width 13.0 % (11.5-14.5) Platelet Count 101 x10^3/uL (140-400) Neutrophils (%) (Auto) 81 % (31-73) Lymphocytes (%) (Auto) 8 % (24-48) Monocytes (%) (Auto) 8 % (0-9) Eosinophils (%) (Auto) 3 % (0-3) Basophils (%) (Auto) 0 % (0-3) Neutrophils # (Auto) 5.6 x10^3/uL (1.8-7.7) Lymphocytes # (Auto) 0.5 x10^3/uL (1.0-4.8) Monocytes # (Auto) 0.6 x10^3/uL (0.0-1.1) Eosinophils # (Auto) 0.2 x10^3/uL (0.0-0.7) Basophils # (Auto) 0.0 x10^3/uL (0.0-0.2) Laboratory Tests Test 02/06/22 06:00 White Blood Count 6.9 x10^3/uL (4.0-11.0) Red Blood Count 4.39 x10^6/uL (4.30-5.70) Hemoglobin 13.4 g/dL (13.0-17.5) Hematocrit 39.2 % (39.0-53.0) Mean Corpuscular Volume 89 fL (79-100) Mean Corpuscular Hemoglobin 31 pg (25-35) Mean Corpuscular Hemoglobin Concent 34 g/dL (31-37) Red Cell Distribution Width 13.0 % (11.5-14.5) Platelet Count 101 x10^3/uL (140-400) Neutrophils (%) (Auto) 81 % (31-73) Lymphocytes (%) (Auto) 8 % (24-48) Monocytes (%) (Auto) 8 % (0-9) Eosinophils (%) (Auto) 3 % (0-3) Basophils (%) (Auto) 0 % (0-3) Neutrophils # (Auto) 5.6 x10^3/uL (1.8-7.7) Lymphocytes # (Auto) 0.5 x10^3/uL (1.0-4.8) Monocytes # (Auto) 0.6 x10^3/uL (0.0-1.1) Eosinophils # (Auto) 0.2 x10^3/uL (0.0-0.7) Basophils # (Auto) 0.0 x10^3/uL (0.0-0.2) Problem List Problems Medical Problems: (1) Acute appendicitis Status: Acute (2) Fever Status: Acute Assessment/Plan Status post laparoscopic appendectomy doing much better today White count normal afebrile Cleared from surgical standpoint for discharge Follow-up with Dr. Girard in 2 weeks Justicifation of Admission Dx: Justifications for Admission: Justification of Admission Dx: N/A CHELSEY ERICKSON MD February 06, 2022 09:27
[2022-02-06] MEDS ORDERED: CALCIUM CARBONATE 500 MG TAB.CHEW PO PRN (09:45)
[2022-02-06] MEDS ORDERED: FAMOTIDINE 20 MG TABLET. PO ONE (09:45)
[2022-02-06] MEDS: LACTOBACILLUS RHAMNOSUS GG 1 CAPSULE. PO SCH (10:09)
[2022-02-06] MEDS ORDERED: AMOX1TAB61 PO (10:59)
[2022-02-06] MEDS ORDERED: OXYC1TAB15 PO (10:59)
[2022-02-06] MEDS ORDERED: OMEP20TA63 PO (10:59)
--- NOTE | 2022-02-06 11:41 | NUR ---
Patient verbalized understanding of discharge instructions. IV removed.
--- NOTE | 2022-02-06 12:31 | DS ---
DATE OF DISCHARGE: 02/06/2022 ADMITTING DIAGNOSIS: Appendicitis. DISCHARGE DIAGNOSIS: Postoperative day 2 laparoscopic appendectomy. HOSPITAL COURSE: The patient is a pleasant 52-year-old male presented with appendicitis. We consulted General Surgery and he was taken for laparoscopic appendectomy. Postprocedure, he did great. Today, I saw and examined him. He wanted to go home. We have discharged him to home. DISPOSITION: Home. ACTIVITY: As tolerated. DIET: Low sodium. MEDICATIONS: Augmentin 875 b.i.d., Percocet 5 q.6 hours, and Prilosec 20 a day. TOTAL TIME: [address]: Donny TID: [id number]
--- NOTE | 2022-02-08 17:08 | PATHOLOGY ---
[facility] Accession Number: [id number] . 01 Material submitted: . appendix - APPENDIX AND CONTENTS . 01 Clinical history: . ACUTE APPENDICITIS . 02 Diagnosis: Appendix, laparoscopic appendectomy: - Acute appendicitis, with focal perforation and serosal exudate. . ([facility]:mm; 02/08/2022) [facility] 02/08/2022 1622 Local . 02 Comment: There is no evidence of malignancy. . ([facility]:mml; 02/08/2022) . 02 Electronically signed: . Frank Birmingham MD, Pathologist NPI- [id number] . 01 Gross description: . Fixative: Formalin Labeled: Appendix Appendix length: The specimen is received fragmented into 2 pieces which measure 9.3 cm in length when reassembled Appendix diameter: 0.8-1.3 cm Mesoappendix: 3.8 x 2.2 x 1.7 cm Proximal margin: Closed with a staple line Serosa: Red-you with extensive merritt-white purulent exudate Cut surface: Displays compacted fecal material and diffuse hemorrhage Luminal diameter: 0.4 cm Perforation: A complete transection/perforation is present in the mid appendix, located 4.3 cm from the margin. The distal piece displays additional perforation extending distally toward the tip measuring 2.6 x 1.0 cm. The perforations are inked green. Lesions/abnormalities: Previously described A1-A3 Proximal margin (inked black) and distal tip, quadrasected A4 Mid appendix ([facility] [place] 02/07/2022) SYC/SYC 02/07/2022 1002 Local . 02 Pathologist provided ICD-10: K35.32 . 02 CPT . 481258 Specimen Comment: A courtesy copy of this report has been sent to [phone] Specimen Comment: Report sent to Performed at: 01 [facility] [address], [place] [id number] MD Sarthak Choi MD Phone: [phone] Performed at: 02 [facility] [address] [place], [place] [id number] MD Frank Birmingham MD Phone: [phone]
== END 2022-02-06 12:04 | disposition home or self-care (01) | DRG 343 ==
LOC: ER 22:45 → 4 NORTH 02-04 00:17 → ER 02-04 01:15 → 4 NORTH 02-04 01:15
PROVIDERS: ADMIT Student in an Organized Health Care Education/Training Program; ATTEND Student in an Organized Health Care Education/Training Program
PROC: 0DTJ4ZZ Resection of Appendix, Percutaneous Endoscopic Approach (ICD-10-PCS; principal; 2022-02-04 12:30)
DX: K35.80 Unspecified acute appendicitis (principal); Z20.822 Contact with and (suspected) exposure to COVID-19; E78.00 Pure hypercholesterolemia, unspecified; I10 Essential (primary) hypertension; K38.1 Appendicular concretions; E78.5 Hyperlipidemia, unspecified; F17.210 Nicotine dependence, cigarettes, uncomplicated; Z83.3 Family history of diabetes mellitus; Z79.899 Other long term (current) drug therapy
CPT/HCPCS: 36415; 74176; 80053; 83690; 85025; 85610; 85730; 87426; 96361; 96365; 96368; 96375; A4209; A4314; A4930; A6402; J0330; J1100; J1170; J2270; J2370; J2405; J2543; J3010; J3490; J7030; J7120; U0003; 99285-25; G0378